=== PATIENT | male | born 1950 | race Hispanic/Latino ===

== ENCOUNTER 2025-05-08 10:03 | Emergency (ER) | payer MEDICARE ==
[~2025-05-08] VITALS: Ht 162.6 cm; Wt 108.9 kg
[~2025-05-08 10:03] MED LIST: AUGMENTIN 500-1 EACH PO; LOSARTAN POTASS25 MG PO; OMEPRAZOLE40 MG PO; TYLENOL325 MG PO
[2025-05-08 10:14] VITALS: RESP 18; TEMP 99.1
[2025-05-08 10:55] LABS: BASOPHILS % 0.7 % (0.0-1.0); EOSINOPHILS % 3.1 % (0.0-6.0); LYMPHOCYTES % 34.6 % (18.0-39.1); MONOCYTES % 8.8 % (4.4-11.3); NEUTROPHILS % 52.6 % (38.7-80.0); RED CELL DISTRIBUTION WIDTH 13.0 % (11.7-14.4)
[2025-05-08 11:00] VITALS: PULSE 58; O2SAT 98
[2025-05-08 11:09] LABS: EST GLOMERULAR FILTRATION RATE 92.0 ML/MIN (>=60)
[2025-05-08 12:09] LABS: LEUKOCYTE ESTERASE ,URINE NEGATIVE (NEGATIVE); PROTEIN,URINE DIPSTICK NEGATIVE (NEGATIVE); URINE UROBILINOGEN 1 mg/dL (0.2 - 1)
[2025-05-08 12:33] LABS: EPITHELIAL CELLS,URINE MODERATE /LPF
[2025-05-08] MEDS ORDERED: CEFPODOXIME PR200 MG PO (12:36)
== END 2025-05-08 12:57 | disposition home or self-care (01) ==
LOC: ER 10:18
DX: R30.0 Dysuria (principal); N39.0 Urinary tract infection, site not specified; R31.9 Hematuria, unspecified; I10 Essential (primary) hypertension; E78.5 Hyperlipidemia, unspecified; K21.9 Gastro-esophageal reflux disease without esophagitis
CPT/HCPCS: 36415; 74176; 80053; 81001; 85025; 99284; J0696